=== PATIENT | female | born 1985 | race Asian ===

== ENCOUNTER 2018-05-01 08:26 | Emergency (ER) | payer BC, OTHER ==
[~2018-05-01] VITALS: Ht 160 cm; Wt 54.4 kg
[~2018-05-01 08:26] MED LIST: ADDERALL 10 MG10 MG PO; AZELEX30 GM SC; LEXAPRO10 MG PO; [UNRECOGNIZED DRUG - OTHER]
--- OUTSIDE RECORDS SUMMARY | 2018-05-01 08:29 | XMS REPORT ---
Author Organization Unknown Address [address] [place] [address] Phone [phone] Care Team Providers Care Progress Developer Name Role Phone Cindy Bhandari Unavailable Unavailable Allergies Code Code System Name Reaction Severity Status Onset Venlafaxine Hcl Active 06/10/2013 NKDA Medications Name Status Start Date Stop Date acetaminophen PRN Completed 02/24/2018 Adderall 20 mg tablet Take 0.5 tablets twice a day by oral route as directed for 30 days. Active Not available Adderall XR 20 mg capsule,extended release Take 1 capsule every day by oral route. Completed 10/08/2017 amoxicillin 875 mg-potassium clavulanate 125 mg tablet Completed 2016 ciprofloxacin 250 mg tablet Completed 06/26/2017 clonazepam 0.5 mg tablet Take 1 tablet every day by oral route as needed. Active Not available escitalopram 20 mg tablet Active Not available fluticasone 50 mcg/actuation nasal spray,suspension Active Not available Fluticasone Propionate (Nasal) 50 mcg/DOSE inhaler Cascade 1 spray every day by intranasal route. Completed 10/08/2017 Fluzone Quad 2015-(PF) 60 mcg(15 mcgx4)/0.5 mL intramuscular syringe Completed 10/16/2016 Imitrex 50 mg tablet Take 1 tablet every day by oral route as needed. Active Not available Kyleena 17.5 mcg/24 hour (5 years) intrauterine device inserted 07/2017 Active Not available magnesium 250 mg tablet Take 1 tablet every day by oral route. Active Not available naproxen PRN Active Not available Nexium qd Active Not available nitrofurantoin macrocrystal 100 mg capsule Take 1 capsule every 6 hours by oral route for 7 days. Completed 2016 nitrofurantoin monohydrate/macrocrystals 100 mg capsule Completed 2017 NuvaRing 0.12 mg -0.015 mg/24 hr vaginal Completed 10/08/2017 ondansetron 8 mg disintegrating tablet qd PRN Active Not available ondansetron HCl 4 mg tablet Completed 03/25/2017 Probiotic QD Active Not available propranolol 10 mg tablet Completed 02/24/2018 propranolol 20 mg tablet Take 0.5 tablets 3 times a day by oral route as needed. Active Not available ranitidine 150 mg tablet PRN Active 10/08/2017 Not available sucralfate 1 gram tablet Active Not available tramadol 37.5 mg-acetaminophen 325 mg tablet Completed 10/08/2017 tramadol 50 mg tablet Take 1 tablet every day by oral route as needed. Active Not available vitamin B complex take as directed. Completed 10/08/2017 Vitamin D3 1,000 unit tablet Take 1 tablet every week by oral route as needed. Active Not available Problems Name Status Onset Date Source Posttraumatic Stress Disorder Active 10/16/2016 Depressive Disorder Active 10/16/2016 Peptic Ulcer Active 10/16/2016 Anxiety Active 02/24/2018 Procedures Date Name Performed by 11/30/2014 Other Information not available 10/16/2016 Electrocardiogram [facility] [place] [address] (Work Place) Notes: septoplasty Lab Results Date Name Specimen Result Interpretation Description Value Range Status Address 03/25/2017 Hepatitis C Virus RNA, Quant, PCR, Serum or Plasma Normal Hepatitis C Antibody non-reactive non-reactive [facility]: [address] [place] [address] Normal Signal to Cut-off 0.01 <1.00 [facility]: [address] [place] [address] 03/25/2017 HIV-1/2 Ag and Abs Screen, 4TH Gen. W/rflx (25455) Normal HIV Ag/Ab, 4TH Gen non-reactive non-reactive [facility]: [address] [place] [address] 03/25/2017 RPR (Rapid Plasma Reagin), Quantitative, Serum Normal RPR (DX) W/refl Titer and Confirmatory Testing non-reactive non-reactive [facility]: [address] [place] [address] 03/25/2017 CBC W/ Auto Diff Wbc 6.20 x10*3/L 2.60-11.20 x10*3/ L [facility]: [address] [place] [address] Rbc 4.64 10*12/L 3.93-5.87 10*12/L [facility] [address] [facility] Hemoglobin 13.60 g/dL 10.70-15.70 g/dL [facility] [address] [facility] Hematocrit 40.4 % 33.2-46.8 % [facility] [address] [facility] Mcv 87.1 fL 77.8-103.4 fL [facility] [address] [facility] Mch 29.3 pg 24.8-35.0 pg [facility] [address] [facility] Mchc 33.7 g/dL 31.5-35.9 g/dL [facility] [address] [facility] RDW-SD 38.3 fL 35.8-50.4 fL [facility]: [address] [place] [address] Platelet Count 270.0 k/uL 126.7-416.1 k/uL [facility]: [address] [place] [address] Mpv 10.3 fL 8.3-13.5 fL [facility]: [address] [place] [address] Neut% 46.4 % 39.5-76.9 % [facility]: [address] [place] [address] Lymph% 45.0 % 12.6-45.8 % [facility]: [address] [place] [address] Mon% 7.3 % 3.7-12.9 % [facility] [address] [facility] Eos% 1.0 % 0.7-6.4 % [facility]: [address] [place] [address] Baso% 0.3 % 0.1-1.5 % [facility] [address] [facility] Neut# 2.9 x10*3/L 0.6-7.6 x10*3/L [facility] [address] [facility] Lymph# 2.8 x10*3/L 0.7-3.3 x10*3/L [facility]: [address] [place] Mon# 0.5 x10*3/L 0.2-1.0 x10*3/L [facility]: [address] [place] Eos# 0.06 x10*3/L 0.04-0.44 x10*3/L [facility]: [address] [place] Baso# 0.02 x10*3/L 0.01-0.08 x10*3/L [facility] [address] [facility] 03/25/2017 CMP, Serum or Plasma Alt 15 U/L 0-55 U/L [facility]: [address] Ast 17 U/L 5-34 U/L [facility]: [address] High Bun 20 mg/dL 7-19 mg/dL [facility]: [address] Low Alk Phos 38 unit/L 40-150 unit/L [facility]: [address] Glucose 82 mg/dL 70-99 mg/dL [facility]: [address] Albumin 4.3 g/dL 3.5-5.0 g/dL [facility]: [address] Creatinine 0.82 mg/dL 0.57-1.11 mg/dL [facility]: [address] eGFR Non- >60 mL/min/1.73m2 >60 mL/min/ 1.73m2 [facility]: [address] Total Bilirubin 0.3 mg/dL 0.2-1.2 mg/dL [facility]: [address] eGFR - >60 mL/min/1.73m2 >60 mL/min/1.73m2 [facility]: [address] Sodium 139 mEq/L 136-145 mEq/L [facility]: [address] Potassium 4.0 mEq/L 3.5-5.1 mEq/L [facility]: [address] Chloride 104 mmol/L 98-107 mmol/L [facility]: [address] Total Protein 7.6 g/dL 6.4-8.3 g/dL [facility]: [address] Calcium 9.8 mg/dL 8.4-10.2 mg/dL [facility]: [address] Co2 24.2 mmol/L 22.0-29.0 mmol/L [facility]: [address] Anion Gap 11 calc [facility]: [address] [place] [address], [place] 03/25/2017 Lipid Panel, Serum High Hdl 82 mg/dL 40-60 mg/dL [facility]: [address] Triglyceride 42 mg/dL 0-149 mg/dL [facility]: [address] VLDL Calc. 8 mg/dL [facility]: [address] cholesterol/HDL Ratio 2 mg/dL [facility]: [address] non-HDL Cholesterol Calc. 81 mg/dL 0-160 mg/dL [facility]: [address] Cholesterol 163 mg/dL 0-199 mg/dL [facility]: [address] LDL Calc. 73 mg/dL 0-130 mg/dL [facility]: [address] 03/25/2017 TSH, Serum or Plasma Tsh 1.200 uIU/mL 0.350-4.940 uIU /mL [facility]: [address] 03/25/2017 CT + NG RNA, Urine Chlamydia Trachomatis (Urine) Molecular Assay not detected [facility]: [address] Neisseria Gonorrhoeae (Urine) Molecular Assay not detected [facility]: [address] [place] [address] 03/25/2017 Pap, IG + HPV mRNA E6/E7 Normal Clinical Information: none given [facility]: [address] [facility] [address] , [place] Normal Lmp: none given [facility]: [address] [place] Normal Prev. Pap: none given [facility]: [address], [place] Normal Prev. BX: none given [facility]: [address], [place] Normal Source: none given [facility]: [address], [place] Normal Statement of Adequacy: Final [facility]: [address], [place] Normal Interpretation/result: Final [facility]: [address], [place] Normal Comment: Final [facility] : [address], [place] Normal Strategic Partnership Representative: Final [facility]: [address], [place] Normal Review Strategic Partnership Representative: Final [facility]: [address], [place] Normal Hpv Mrna E6/E7 not detected not detected [facility]: [address], [place] Urinalysis, Dipstick Color Color yellow [facility] [address] [place] Color Appearance clear [facility] [address] [facility] [address] [place] Color Glucose negative [facility] [address] [place] Color Bilirubin negative [facility]: [address] [facility] [address], [place] Color Ketones trace [facility]: [address] [facility] [address], [place] Color Specific [place] 1.020 [facility]: [address] [place] Color Blood negative [facility]: [address] [place] Color PH 6.0 [facility]: [address] [place] Color Protein negative [facility]: [address] [facility] [address], [place] Color Urobilinogen 0.2 [facility]: [address] [place] Color Nitrites negative [facility]: [address] [place] Color Leukocytes negative [facility]: [address] [facility] [address], [place] Electrocardiogram No observation recorded. [facility]: [address] [facility] [address], [place] Past Encounters 02/24/2018 Attention Deficit Hyperactivity Disorder, Predominantly Inattentive Type; Nausea ; Migraine Ned Garza MD: [address] [place] [address], Ph. [phone] 10/08/2017 Attention Deficit Hyperactivity Disorder, Predominantly Inattentive Type Ned Garza MD: [address] [place] [address], Ph. [phone] 06/26/2017 Peptic Ulcer; Child Attention Deficit Disorder; Generalized Anxiety Disorder Amilcar Bhandari MD: [address] [facility], [address], [place] [address], Ph. [phone] 03/25/2017 Generalized Anxiety Disorder; Gynecologic Examination; Posttraumatic Stress Disorder Amilcar Bhandari MD: [address] [facility], [address], [place] [address], Ph. [phone] 10/16/2016 Generalized Anxiety Disorder; Contraception Care Management; Child Attention Deficit Disorder; Palpitations Amilcar Bhandari MD: [address] [facility], [address], [place] [address], Ph. Social History Smoking Status Former Smoker Vaccine List Vaccine Type DTP 1984 1984 01/07/1985 01/09/1986 07/27/1990 Hep A, adult mL Hep B, adolescent or pediatric 08/29/1993 10/21/1993 06/11/1994 Hib ([facility]) 11/20/1987 influenza, unspecified formulation 08/30/2017 IPV 1984 1984 01/07/1985 01/09/1986 07/27/1990 MMR 05/13/1985 06/18/1995 Tdap 11/30/2010 typhoid, ViCPs 01/06/20130.5 mL Plan of Care Reminders Provider Appointments None recorded. Lab None recorded. Referral None recorded. Procedures None recorded. Surgeries None recorded. Imaging None recorded. 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 Height Weight BMI Blood Pressure 5 ft 3 in 118.6 lbs 21 kg/m2 120/70 mm[Hg] 10/16/2016 11:30AM Est Patient Height Weight BMI Blood Pressure 5 ft 3 in 117.4 lbs 20.8 kg/m2 116/78 mm[Hg] 06/10/2013 Height BMI 5 ft 3 in 21.08 kg/m2 06/10/2013 Weight Blood Pressure 119 lbs 108/78 mm[Hg] 06/01/2013 Height Weight BMI Blood Pressure 5 ft 3 in 123.6 lbs 21.89 kg/m2 120/70 mm[Hg] 02/02/2013 Height Weight BMI Blood Pressure 5 ft 3 in 119 lbs 21.08 kg/m2 90/60 mm[Hg] 01/14/2013 Height Weight BMI Blood Pressure 5 ft 3 in 123.6 lbs 21.89 kg/m2 104/76 mm[Hg] 01/06/2013 Height Weight BMI Blood Pressure 5 ft 3 in 119.8 lbs 21.22 kg/m2 112/74 mm[Hg]
[2018-05-01] MEDS ORDERED: PROMETHAZINE 12.5MG/ NACL 0.9% 12.5 MG/50 ML BAG IV ONE (09:15)
[2018-05-01] MEDS ORDERED: SODIUM CHLORIDE 0.9% 1000ML 1,000 ML IV SCH (09:15)
[2018-05-01] MEDS ORDERED: PANTOPRAZOLE 40 MG 10ML VIAL IV NR (09:15)
[2018-05-01] MEDS ORDERED: SODIUM CHLORIDE 0.9% 1000ML 1,000 ML ONE (09:15)
[2018-05-01] MEDS ORDERED: KETOROLAC TROMETHAMINE 30 MG/ML VIAL IV NR (09:15)
== END 2018-05-01 10:34 | disposition home or self-care (01) ==
LOC: ER 08:30
DX: G43.909 Migraine, unspecified, not intractable, without status migrainosus (principal)
CPT/HCPCS: 99283; J1885; J2550; J7030